=== PATIENT | female | born 1950 | race Hispanic/Latino ===

== ENCOUNTER → 2018-10-20 | Outpatient (CLI) | payer MEDICARE | END | disposition home or self-care (01) | LOC: SHCH 08:13 | PROVIDERS: ATTEND Internal Medicine Cardiovascular Disease | DX: I65.23 Occlusion and stenosis of bilateral carotid arteries (principal) | CPT/HCPCS: 93880 ==

== ENCOUNTER 2024-05-31 07:24 | Day surgery (SDC) | payer OTHER ==
[2024-05-26 10:59] VITALS: BP 142/61; PULSE 64; RESP 18; TEMP 98.1
--- NOTE | 2024-05-26 11:09 | EKG ---
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
[2024-05-26 11:20] LABS: ALBUMIN 3.8 g/dL (3.5-5.0); BILIRUBIN,TOTAL 0.3 mg/dL (0.2-1.0); CREATININE 0.9 mg/dL (0.5-1.0); POTASSIUM 4.6 mmol/L (3.5-5.1); TOTAL PROTEIN, SERUM 7.8 g/dL (6.0-8.3)
[2024-05-26 11:35] LABS: INR 0.94 (0.85-1.15); PROTHROMBIN TIME 10.6 SEC (9.6-11.6)
[2024-05-26 11:36] LABS: PARTIAL THROMBOPLASTIN TIME 29.8 SEC (26.3-35.5)
[2024-05-26 11:51] LABS: BASOPHILS # (AUTO) 0.03 K/uL (0.00-0.20); BASOPHILS % (AUTO) 0.5 % (0.0-5.0); EOSINOPHILS # (AUTO) 0.09 K/uL (0.00-0.70); EOSINOPHILS % (AUTO) 1.5 % (0.0-8.0); IMMATURE GRANULOCYTE ABSOLUTE 0.01 K/uL (0-1); LYMPHOCYTES # (AUTO) 1.9 K/uL (1.0-4.8); LYMPHOCYTES % (AUTO) 31.5 % (21.0-51.0); MEAN CORPUSCULAR HGB CONC 33.2 g/dL (32.0-36.0); MEAN CORPUSCULAR VOLUME 90.5 fL (79-99); MONOCYTES # (AUTO) 0.5 K/uL (0.1-1.0); MONOCYTES % (AUTO) 8.9 % (3.0-13.0); NEUTROPHILS # (AUTO) 3.5 K/uL (1.8-7.7); NEUTROPHILS % (AUTO) 57.4 % (40.0-77.0); PLATELET COUNT (AUTO) 314 K/uL (130-400); RED BLOOD CELL COUNT(AUTO) 4.86 MIL/uL (4.00-5.50); RED CELL DISTRIBUTION WIDTH 12.7 % (11.0-15.5)
[2024-05-31] VITALS (12 sets, daily range): BP systolic 121–158; BP diastolic 58–91; PULSE 62–93; RESP 14–23; TEMP 97–97.9
[~2024-05-31] VITALS: Ht 157.5 cm; Wt 64.3 kg
[~2024-05-31 07:24] MED LIST: ALEN70TA80 PO; ASPI-1005 PO; ATOR10TA69 PO; LORA10TA7 PO; OMEP40CA21 PO
[2024-05-31] MEDS ORDERED: FAMOTIDINE 20MG VIAL IV ONE (08:06)
[2024-05-31] MEDS ORDERED: SCOPOLAMINE HYDROBROMIDE 1 EACH ADH..PATCH TD ONE (08:06)
[2024-05-31] MEDS ORDERED: acetaMINOPHEN 100 ML ONE (08:06)
[2024-05-31] MEDS ORDERED: rocuRONium bROMide 10MG/1ML 5ML VL ONE (08:12)
[2024-05-31] MEDS ORDERED: proPOFol 10 MG/ML 20ML VIAL IV ONE (08:12)
[2024-05-31] MEDS ORDERED: LIDOCAINE PF 100MG/5ML (2%) SYRINGE 5ML ONE (08:12)
[2024-05-31] MEDS ORDERED: FENTanyl CITRate PF 50 MCG/1 ML 2ML VIAL ONE (08:13)
[2024-05-31] MEDS: ceFAZolin SODIUM 2 GM VIAL ONE (08:59)
[2024-05-31] MEDS: LACTATED RINGERS 1000ML 1,000 ML IV ONE (09:00)
[2024-05-31] MEDS: ceFAZolin SODIUM 2 GM VIAL IVPB ONE ×2 (09:20)
[2024-05-31] MEDS ORDERED: ondanSETRON 4MG INJ ONE (09:26)
[2024-05-31] MEDS ORDERED: dexaMETHasone SOD PHOSPHATE 4 MG/ML 1ML VIAL ONE (09:26)
[2024-05-31] MEDS ORDERED: BUPIvacaine/PF 0.5% 30ML VIAL ONE (09:34)
[2024-05-31] MEDS ORDERED: LIDOCAINE 1%-EPI 1:100,000 20 ML VIAL ONE (09:35)
[2024-05-31] MEDS ORDERED: NEOSTIGMINE METHYLSULFATE 1MG/ML IV ONE (09:40)
[2024-05-31] MEDS ORDERED: GLYCOPYRROLATE 0.2 MG/ML 5 ML VIAL ONE (09:40)
--- NOTE | 2024-05-31 09:53 | OP ---
Operative Note: DATE OF PROCEDURE: 05/31/24 SURGEON: MARITZA VASQUEZ MD AWNING HANGER: [None] ANESTHESIA: [General plus local] PREOPERATIVE DIAGNOSIS: [Perianal cyst] POSTOPERATIVE DIAGNOSIS: [Short subcutaneous fistula in anal] PROCEDURE: [Exam under anesthesia. Anal fistulotomy, subcutaneous. Excision of perianal cyst.] ESTIMATED BLOOD LOSS: None] INDICATIONS: [This is a 74-year-old female who presents to the office with an enlarging perianal cyst discomfort an anal pain. Examination reveal an area of concern on the left lateral anal region. No fistulous tract with the exterior office was identified. She was offered an exam under anesthesia and all other indicated procedures.] DESCRIPTION OF PROCEDURE: [The patient was identified in the holding area transferred to the OR placed supine on the operative table. Venodyne boots were placed for DVT prophylaxis. IV antibiotics were given within the hour of skin incision. After general anesthesia was obtained, time-out conducted, she was placed in lithotomy position with great care taken to pad all pressure points. It was clearly evident that a cystic lesion was in the left perianal region about a cm from the verge. Was marked and an anal block was given skin was i ncised and the induration and cystic area were excised and passed to the back table. Upon entering a short fistula tract was identified feeding into the very distal anal canal in the subcutaneous plane with no muscle involvement whatsoever. This was approached with a Bovie and a fistulotomy performed. A single suture was placed at the apex of the incision in the anoderm. To chromic sutures were placed in the skin approximating the cystic site excision. Area was irrigated and aspirated clear. Hemostasis checked and noted to be thorough. Counts were done and correct. There were no complications. There was present and scrubbed for the entire case.] MARITZA HASTINGS MD May 31, 2024 09:53
[2024-05-31] MEDS: IpraTROPium/alBUTERol SULFATE 3 ML SOLUTION IH ONE (10:11)
== END 2024-05-31 11:05 | disposition home or self-care (01) ==
LOC: DAH 07:24
PROVIDERS: ATTEND Surgery
DX: R15.1 Fecal smearing (principal); K31.A19 Gastric intestinal metaplasia without dysplasia, unspecified site; K62.89 Other specified diseases of anus and rectum; K60.30 Anal fistula, unspecified; R12 Heartburn; K20.90 Esophagitis, unspecified without bleeding; E78.5 Hyperlipidemia, unspecified; M81.0 Age-related osteoporosis without current pathological fracture; D23.5 Other benign neoplasm of skin of trunk; R13.10 Dysphagia, unspecified; F10.90 Alcohol use, unspecified, uncomplicated; I10 Essential (primary) hypertension; E66.9 Obesity, unspecified; K44.9 Diaphragmatic hernia without obstruction or gangrene; Z79.82 Long term (current) use of aspirin; Z85.038 Personal history of other malignant neoplasm of large intestine; Z88.8 Allergy status to other drugs, medicaments and biological substances; Z68.25 Body mass index [BMI] 25.0-25.9, adult; Z98.890 Other specified postprocedural states; Z79.899 Other long term (current) drug therapy; Z86.0100 Personal history of colon polyps, unspecified; Z79.01 Long term (current) use of anticoagulants
CPT/HCPCS: 80053; 85025; 85610; 85730; 36415; 93005; 46270; 88304; 94640; J1100; A4223 ×2; A4600; A6260; A4663; A4606; J7120; J3490 ×4; J3010; J2003; J2704; J2405; J2710; J0665; J0690 ×2; A4930; A4215 ×2; A4213; A4222; A4221; A4216